=== PATIENT | female | born 1980 | race Hispanic/Latino ===

== ENCOUNTER 2017-08-25 16:07 | Emergency (ER) | payer MEDICARE, OTHER ==
[~2017-08-25 16:07] MED LIST: ACET1TAB25 PO; CARAL PO; CHOL400T4 PO; GABA-531 PO; HYDR200T82 PO; LEVO300T8 PO; LISI10TA7 PO; PANT40TA25 PO; SIMV20TA6 PO
== END 2017-08-25 16:44 | disposition home or self-care (01) ==
LOC: EDH 16:07
DX: I10 Essential (primary) hypertension (principal); E07.9 Disorder of thyroid, unspecified; M32.9 Systemic lupus erythematosus, unspecified; Z88.8 Allergy status to other drugs, medicaments and biological substances
CPT/HCPCS: 99281

== ENCOUNTER 2017-09-21 16:52 | Emergency (ER) | payer MEDICARE, OTHER ==
[2017-09-21] MEDS ORDERED: ONDANSETRON HCL 4 MG/2 ML VIAL ONE (18:42)
[2017-09-21 19:02] LABS: APPEARANCE,URINE Cloudy (CLEAR); BASOPHILS % (AUTO) 0.6 % (0.0-5.0); BILIRUBIN,URINE Negative (NEGATIVE); COLOR,URINE Yellow (YELLOW); EOSINOPHILS % (AUTO) 0.6 % (0.0-8.0); GLUCOSE, URINE (UA) Negative (NEGATIVE); HEMATOCRIT 43.6 % (36-48); KETONES,URINE Negative (NEGATIVE); LEUKOCYTE ESTERASE ,URINE Small (NEGATIVE); LYMPHOCYTES % (AUTO) 25.5 % (21.0-51.0); MEAN CORPUSCULAR HEMOGLOBIN 30.4 pg (27.0-33.0); MEAN CORPUSCULAR HGB CONC 33.5 g/dL (32.0-36.0); MONOCYTES % (AUTO) 5.2 % (3.0-13.0); NEUTROPHILS % (AUTO) 68.1 % (40.0-77.0); NITRATE,URINE Negative (NEGATIVE); NUCLEATED RED BLOOD CELLS 0.1 % (0.0-0.19); OCCULT BLOOD,URINE Large (NEGATIVE); PLATELET COUNT (AUTO) 319 K/uL (130-400); PROTEIN,URINE Trace (NEGATIVE); RED BLOOD CELL COUNT(AUTO) 4.79 MIL/uL (4.00-5.50); RED CELL DISTRIBUTION WIDTH 14.6 % (11.0-15.5); WHITE BLOOD COUNT (AUTO) 10.6 K/uL (4.8-10.8)
[2017-09-21 19:10] LABS: AMPHET/METH SCREEN,URINE NEGATIVE (NEGATIVE); BARBITURATE SCREEN, URINE NEGATIVE (NEGATIVE); BENZODIAZEPINES SCREEN,URINE NEGATIVE (NEGATIVE); CANNABINOID SCREEN,URINE NEGATIVE (NEGATIVE); COCAINE SCREEN,URINE NEGATIVE (NEGATIVE); OPIATE SCREEN,URINE NEGATIVE (NEGATIVE); PHENCYCLIDINE SCREEN,URINE NEGATIVE (NEGATIVE)
[2017-09-21 19:21] LABS: POTASSIUM 4.1 mmol/L (3.5-5.1)
[2017-09-21 19:28] LABS: TRICHOMONAS,URINE Rare /LPF (None Seen)
[2017-09-21 19:29] LABS: BACTERIA,URINE Few /HPF (None Seen); RBC,URINE 26-50 /HPF (0-1)
[2017-09-21 19:32] LABS: ALBUMIN 3.5 g/dL (3.5-5.0); BILIRUBIN,TOTAL 0.2 mg/dL (0.2-1.0); TOTAL PROTEIN, SERUM 7.6 g/dL (6.0-8.3)
[2017-09-21] MEDS ORDERED: KETOROLAC TROMETHAMINE 15MG/ML ONE (20:06)
== END 2017-09-21 20:45 | disposition home or self-care (01) ==
LOC: EDH 16:52
DX: G89.29 Other chronic pain (principal); R10.11 Right upper quadrant pain; R11.2 Nausea with vomiting, unspecified; I10 Essential (primary) hypertension; E07.9 Disorder of thyroid, unspecified; F43.10 Post-traumatic stress disorder, unspecified; Z88.8 Allergy status to other drugs, medicaments and biological substances; Z90.49 Acquired absence of other specified parts of digestive tract; Z98.51 Tubal ligation status; Z98.890 Other specified postprocedural states
CPT/HCPCS: 36415; 80053; 80305; 81001; 83690; 84702; 85025; 96374; 96375; 99284; J1885; J2405

== ENCOUNTER 2018-04-13 19:02 | Emergency (ER) | payer MEDICARE ==
[2018-04-13 20:25] LABS: APPEARANCE,URINE Clear (CLEAR); BILIRUBIN,URINE Negative (NEGATIVE); COLOR,URINE Yellow (YELLOW); GLUCOSE, URINE (UA) Negative (NEGATIVE); KETONES,URINE Negative (NEGATIVE); LEUKOCYTE ESTERASE ,URINE Moderate (NEGATIVE); NITRATE,URINE Negative (NEGATIVE); OCCULT BLOOD,URINE Large (NEGATIVE); PH,URINE 5.5 (5.0-8.0); PROTEIN,URINE Negative (NEGATIVE)
[2018-04-13] MEDS ORDERED: SODIUM CHLORIDE 0.9% 1000ML 1,000 ML IV ONE (20:28)
[2018-04-13 20:38] LABS: BACTERIA,URINE Few /HPF (None Seen); SQUAMOUS EPITHELIAL CELL,UR 0-2 /HPF (0-2); TRICHOMONAS,URINE Rare /LPF (None Seen)
[2018-04-13 20:44] LABS: BASOPHILS % (AUTO) 0.3 % (0.0-5.0); HEMATOCRIT 46.7 % (36-48); MEAN CORPUSCULAR HEMOGLOBIN 30.4 pg (27.0-33.0); MEAN CORPUSCULAR HGB CONC 32.7 g/dL (32.0-36.0); MONOCYTES % (AUTO) 8.2 % (3.0-13.0); NEUTROPHILS % (AUTO) 57.5 % (40.0-77.0); NUCLEATED RED BLOOD CELLS 0.1 % (0.0-0.19); PLATELET COUNT (AUTO) 274 K/uL (130-400); RED BLOOD CELL COUNT(AUTO) 5.02 MIL/uL (4.00-5.50); RED CELL DISTRIBUTION WIDTH 14.1 % (11.0-15.5); WHITE BLOOD COUNT (AUTO) 10.3 K/uL (4.8-10.8)
[2018-04-13] MEDS ORDERED: DiphenhydrAMINE HCL 50 MG/ML VIAL ONE (21:05)
[2018-04-13] MEDS ORDERED: KETOROLAC TROMETHAMINE 30MG/ML ONE (21:06)
[2018-04-13 21:14] LABS: CREATININE 0.9 mg/dL (0.5-1.5); POTASSIUM 3.9 mmol/L (3.5-5.1)
[2018-04-13 21:19] LABS: BILIRUBIN,TOTAL 0.4 mg/dL (0.2-1.0); TOTAL PROTEIN, SERUM 8.7 g/dL (6.0-8.3)
[2018-04-13] MEDS ORDERED: MECLIZINE HCL 25 MG TABLET ONE (22:16)
[2018-04-13] MEDS ORDERED: METRONIDAZOLE 500 MG TABLET ONE (23:30)
[2018-04-13] MEDS ORDERED: ONDANSETRON HCL 4 MG/2 ML VIAL ONE (23:45)
== END 2018-04-14 00:16 | disposition home or self-care (01) ==
LOC: EDH 19:02
DX: R42 Dizziness and giddiness (principal); R11.0 Nausea; I10 Essential (primary) hypertension; F41.9 Anxiety disorder, unspecified; E07.9 Disorder of thyroid, unspecified; M32.9 Systemic lupus erythematosus, unspecified; F43.10 Post-traumatic stress disorder, unspecified; Z98.51 Tubal ligation status; Z90.49 Acquired absence of other specified parts of digestive tract; Z88.8 Allergy status to other drugs, medicaments and biological substances
CPT/HCPCS: 36415; 71045; 80053; 81001; 81025; 84443; 85025; 87486; 87797; 93005; 96361; 96374; 96375; 99284; J1200; J1885; J2405; J7030

== ENCOUNTER 2018-05-06 15:44 | Emergency (ER) | payer MEDICARE, OTHER | END 2018-05-06 17:01 | disposition home or self-care (01) | LOC: EDH 15:44 | DX: R20.2 Paresthesia of skin (principal); M25.521 Pain in right elbow; I10 Essential (primary) hypertension; F41.9 Anxiety disorder, unspecified; E07.9 Disorder of thyroid, unspecified; Z98.51 Tubal ligation status; Z98.890 Other specified postprocedural states | CPT/HCPCS: 99281 ==

== ENCOUNTER 2018-06-21 18:32 | Emergency (ER) | payer MEDICARE ==
[2018-06-21] MEDS ORDERED: PROCHLORPERAZINE EDISYLATE 10 MG/2 ML VIAL ONE (18:58)
[2018-06-21] MEDS ORDERED: DIPHENHYDRAMINE HCL 25 MG CAPSULE ONE (18:58)
[2018-06-21] MEDS ORDERED: DEXAMETHASONE SOD PHOSPHATE 10MG/ML 1ML VIAL ONE (18:58)
[2018-06-21] MEDS ORDERED: SODIUM CHLORIDE 0.9% 1000ML 1,000 ML IV ONE (19:05)
== END 2018-06-21 19:37 | disposition home or self-care (01) ==
LOC: EDH 18:32
DX: G43.909 Migraine, unspecified, not intractable, without status migrainosus (principal); R42 Dizziness and giddiness; I10 Essential (primary) hypertension; F41.9 Anxiety disorder, unspecified; E07.9 Disorder of thyroid, unspecified; Z98.51 Tubal ligation status
CPT/HCPCS: 96361; 96374; 99283; J0780; J1100; J7030; Q0163

== ENCOUNTER 2018-07-12 12:22 | Emergency (ER) | payer MEDICARE ==
[2018-07-12 13:04] LABS: APPEARANCE,URINE SL CLOUDY (CLEAR); BILIRUBIN,URINE NEGATIVE (NEGATIVE); COLOR,URINE YELLOW (YELLOW); GLUCOSE, URINE (UA) NEGATIVE (NEGATIVE); KETONES,URINE NEGATIVE (NEGATIVE); LEUKOCYTE ESTERASE ,URINE SMALL (NEGATIVE); NITRATE,URINE NEGATIVE (NEGATIVE); OCCULT BLOOD,URINE NEGATIVE (NEGATIVE); PROTEIN,URINE NEGATIVE (NEGATIVE); UROBILINOGEN,URINE 0.2 mg/dL (0.2-1.0)
[2018-07-12 13:07] LABS: HCG,QUAL RESULT NEGATIVE (NEGATIVE)
[2018-07-12 13:12] LABS: BACTERIA,URINE Moderate /HPF (None Seen); RBC,URINE 0-1 /HPF (0-1); SQUAMOUS EPITHELIAL CELL,UR 30-50 /HPF (0-2)
[2018-07-12] MEDS ORDERED: ORPHENADRINE CITRATE 30 MG/ML ML ONE (13:12)
== END 2018-07-12 13:18 | disposition home or self-care (01) ==
LOC: EDH 12:22
DX: S79.822A Other specified injuries of left thigh, initial encounter (principal); F41.9 Anxiety disorder, unspecified; I10 Essential (primary) hypertension; E07.9 Disorder of thyroid, unspecified; F43.10 Post-traumatic stress disorder, unspecified; L93.0 Discoid lupus erythematosus; Z90.49 Acquired absence of other specified parts of digestive tract; Z98.51 Tubal ligation status; W18.39XA Other fall on same level, initial encounter; Y93.89 Activity, other specified; Y92.89 Other specified places as the place of occurrence of the external cause; Y99.8 Other external cause status
CPT/HCPCS: 73562; 81001; 81025; 96372; 99285; J2360

== ENCOUNTER 2019-01-15 22:10 | Emergency (ER) | payer MEDICARE, OTHER ==
[2019-01-15] MEDS ORDERED: METHYLPREDNISOLONE SOD SUCC 125MG/2ML VIAL ONE (22:49)
[2019-01-15] MEDS ORDERED: DIAZEPAM 2 MG TAB ONE (22:49)
[2019-01-15 23:37] LABS: POTASSIUM 3.7 mmol/L (3.5-5.1)
[2019-01-15 23:53] LABS: T4 (THYROXINE) 3.6 ug/dL (4.7-13.3)
[2019-01-16 00:24] LABS: THYROID STIMULATING HORMONE 142.17 uIU/mL (0.36-3.74)
== END 2019-01-16 00:43 | disposition home or self-care (01) ==
LOC: EDH 22:10
DX: E03.9 Hypothyroidism, unspecified (principal); R20.2 Paresthesia of skin; M32.9 Systemic lupus erythematosus, unspecified; F41.9 Anxiety disorder, unspecified; I10 Essential (primary) hypertension; F43.10 Post-traumatic stress disorder, unspecified
CPT/HCPCS: 36415; 71045; 80048; 84436; 84443; 84484; 93005; 96372; 99285; J2930

== ENCOUNTER 2019-02-02 16:48 | Emergency (ER) | payer OTHER ==
[~2019-02-02 16:48] MED LIST changes: +SIMV-43 PO; -SIMV20TA6 PO
[2019-02-02] MEDS ORDERED: KETOROLAC TROMETHAMINE 30MG/ML ONE (17:09)
[2019-02-02] MEDS ORDERED: ONDANSETRON HCL 4 MG/2 ML VIAL ONE (17:09)
[2019-02-02] MEDS ORDERED: SODIUM CHLORIDE 0.9% 1000ML 1,000 ML IV ONE (17:10)
[2019-02-02 17:14] LABS: BASOPHILS % (AUTO) 0.7 % (0.0-5.0); EOSINOPHILS % (AUTO) 1.3 % (0.0-8.0); HEMATOCRIT 46.7 % (36-48); LYMPHOCYTES % (AUTO) 26.4 % (21.0-51.0); MEAN CORPUSCULAR HEMOGLOBIN 31.4 pg (27.0-33.0); MEAN CORPUSCULAR HGB CONC 33.7 g/dL (32.0-36.0); MEAN CORPUSCULAR VOLUME 93.1 fL (79-99); MONOCYTES % (AUTO) 6.3 % (3.0-13.0); NEUTROPHILS % (AUTO) 65.3 % (40.0-77.0); NUCLEATED RED BLOOD CELLS 0.1 % (0.0-0.19); PLATELET COUNT (AUTO) 333 K/uL (130-400); RED BLOOD CELL COUNT(AUTO) 5.02 MIL/uL (4.00-5.50); RED CELL DISTRIBUTION WIDTH 14.3 % (11.0-15.5); WHITE BLOOD COUNT (AUTO) 12.6 K/uL (4.8-10.8)
[2019-02-02 17:25] LABS: CREATININE 0.9 mg/dL (0.5-1.5); POTASSIUM 4.2 mmol/L (3.5-5.1)
[2019-02-02 17:26] LABS: INR 0.97 (0.85-1.15); PARTIAL THROMBOPLASTIN TIME 26.2 SEC (26.3-35.5); PROTHROMBIN TIME 10.2 SEC (9.6-11.6)
[2019-02-02 17:30] LABS: ALBUMIN 3.3 g/dL (3.5-5.0); BILIRUBIN,DIRECT 0.1 mg/dL (0.0-0.3); BILIRUBIN,TOTAL 0.4 mg/dL (0.2-1.0); TOTAL PROTEIN, SERUM 7.5 g/dL (6.0-8.3)
[2019-02-02 18:38] LABS: APPEARANCE,URINE CLOUDY (CLEAR); BILIRUBIN,URINE NEGATIVE (NEGATIVE); COLOR,URINE YELLOW (YELLOW); GLUCOSE, URINE (UA) NEGATIVE (NEGATIVE); KETONES,URINE NEGATIVE (NEGATIVE); LEUKOCYTE ESTERASE ,URINE NEGATIVE (NEGATIVE); NITRATE,URINE NEGATIVE (NEGATIVE); OCCULT BLOOD,URINE LARGE (NEGATIVE); PH,URINE 7.5 (5.0-8.0); PROTEIN,URINE NEGATIVE (NEGATIVE); UROBILINOGEN,URINE 0.2 mg/dL (0.2-1.0)
[2019-02-02 18:45] LABS: BACTERIA,URINE Moderate /HPF (None Seen); MUCUS,URINE Few LPF (None Seen)
== END 2019-02-02 19:33 | disposition home or self-care (01) ==
LOC: EDH 16:48
DX: R10.31 Right lower quadrant pain (principal); R11.2 Nausea with vomiting, unspecified; F41.9 Anxiety disorder, unspecified; I10 Essential (primary) hypertension; E07.9 Disorder of thyroid, unspecified; Z90.49 Acquired absence of other specified parts of digestive tract; Z98.51 Tubal ligation status
CPT/HCPCS: 36415; 74176; 80048; 80076; 81001; 81025; 82550; 83690; 85025; 85610; 85730; 96361; 96374; 96375; 99285; J1885; J2405; J7030

== ENCOUNTER 2019-08-17 00:36 | Emergency (ER) | payer OTHER ==
[2019-08-17 02:20] LABS: APPEARANCE,URINE Clear (CLEAR); BILIRUBIN,URINE Negative (NEGATIVE); COLOR,URINE Yellow (YELLOW); GLUCOSE, URINE (UA) Negative (NEGATIVE); KETONES,URINE Negative (NEGATIVE); LEUKOCYTE ESTERASE ,URINE Negative (NEGATIVE); NITRATE,URINE Negative (NEGATIVE); OCCULT BLOOD,URINE Small (NEGATIVE); PH,URINE 6.5 (5.0-8.0); PROTEIN,URINE Negative (NEGATIVE); UROBILINOGEN,URINE 0.2 mg/dL (0.2-1.0)
[2019-08-17 02:23] LABS: HCG,QUAL RESULT NEGATIVE (NEGATIVE)
[2019-08-17 02:32] LABS: BASOPHILS % (AUTO) 0.5 % (0.0-5.0); EOSINOPHILS % (AUTO) 2.2 % (0.0-8.0); HEMATOCRIT 40.9 % (36-48); LYMPHOCYTES % (AUTO) 32.8 % (21.0-51.0); MEAN CORPUSCULAR HEMOGLOBIN 30.7 pg (27.0-33.0); MEAN CORPUSCULAR HGB CONC 33.3 g/dL (32.0-36.0); MEAN CORPUSCULAR VOLUME 92.3 fL (79-99); MONOCYTES % (AUTO) 9.9 % (3.0-13.0); NEUTROPHILS % (AUTO) 54.3 % (40.0-77.0); PLATELET COUNT (AUTO) 274 K/uL (130-400); RED BLOOD CELL COUNT(AUTO) 4.43 MIL/uL (4.00-5.50); RED CELL DISTRIBUTION WIDTH 13.2 % (11.0-15.5); WHITE BLOOD COUNT (AUTO) 9.9 K/uL (4.8-10.8)
[2019-08-17 02:33] LABS: BACTERIA,URINE None Seen /HPF (None Seen); RBC,URINE None Seen /HPF (0-1); SQUAMOUS EPITHELIAL CELL,UR Moderate /HPF (0-2); WBC,URINE None Seen /HPF (0-1)
[2019-08-17 02:39] LABS: CREATININE 0.9 mg/dL (0.5-1.5); POTASSIUM 4.3 mmol/L (3.5-5.1)
[2019-08-17] MEDS ORDERED: KETOROLAC TROMETHAMINE 30MG/ML ONE (02:51)
[2019-08-17 02:56] LABS: ALBUMIN 3.2 g/dL (3.5-5.0); BILIRUBIN,TOTAL 0.3 mg/dL (0.2-1.0); THYROID STIMULATING HORMONE 33.15 uIU/mL (0.36-3.74); TOTAL PROTEIN, SERUM 6.9 g/dL (6.0-8.3)
[2019-08-17] MEDS ORDERED: MORPHINE SULFATE 4 MG/1ML SYG ONE (04:32)
== END 2019-08-17 05:09 | disposition home or self-care (01) ==
LOC: EDH 00:36
DX: M54.16 Radiculopathy, lumbar region (principal); M54.30 Sciatica, unspecified side; M32.19 Other organ or system involvement in systemic lupus erythematosus; I10 Essential (primary) hypertension; F41.9 Anxiety disorder, unspecified; Z90.49 Acquired absence of other specified parts of digestive tract
CPT/HCPCS: 36415; 73562; 80053; 81001; 81025; 84439; 84443; 85025; 85378; 96374; 96375; 99284; J1885; J2270

== ENCOUNTER 2024-02-12 07:27 | Day surgery (SDC) | payer OTHER ==
[2024-02-10 12:36] LABS: BASOPHILS # (AUTO) 0.09 K/uL (0.00-0.20); BASOPHILS % (AUTO) 0.9 % (0.0-5.0); EOSINOPHILS # (AUTO) 0.49 K/uL (0.00-0.70); EOSINOPHILS % (AUTO) 4.8 % (0.0-8.0); IMMATURE GRANULOCYTE ABSOLUTE 0.05 K/uL (0-1); LYMPHOCYTES # (AUTO) 2.3 K/uL (1.0-4.8); LYMPHOCYTES % (AUTO) 22.4 % (21.0-51.0); MEAN CORPUSCULAR HEMOGLOBIN 27.2 pg (27.0-33.0); MEAN CORPUSCULAR HGB CONC 31.9 g/dL (32.0-36.0); MEAN CORPUSCULAR VOLUME 85.4 fL (79-99); MONOCYTES # (AUTO) 0.8 K/uL (0.1-1.0); MONOCYTES % (AUTO) 7.3 % (3.0-13.0); NEUTROPHILS # (AUTO) 6.6 K/uL (1.8-7.7); NEUTROPHILS % (AUTO) 64.1 % (40.0-77.0); PLATELET COUNT (AUTO) 390 K/uL (130-400); RED BLOOD CELL COUNT(AUTO) 4.92 MIL/uL (4.00-5.50); RED CELL DISTRIBUTION WIDTH 14.9 % (11.0-15.5); WHITE BLOOD COUNT (AUTO) 10.3 K/uL (4.8-10.8)
--- NOTE | 2024-02-10 12:38 | EKG ---
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
[2024-02-10 12:46] LABS: INR 1.01 (0.85-1.15); PROTHROMBIN TIME 10.9 SEC (9.6-11.6)
[2024-02-10 12:47] LABS: PARTIAL THROMBOPLASTIN TIME 26.7 SEC (26.3-35.5)
[2024-02-10 13:09] VITALS: BP 131/76; PULSE 103; RESP 18; TEMP 97.4
[2024-02-10 14:26] LABS: B-TYPE NATRIURETIC PEPTIDE < 5 pg/mL (0-100)
[~2024-02-12] VITALS: Ht 165.1 cm; Wt 118.9 kg
[~2024-02-12 07:27] MED LIST changes: +ACET-2079 PO; -ACET1TAB25 PO; +ASPI-1146 PO; +ATOR40TA71 PO; +BUSP15TA3 PO; -CARAL PO; +CEVI30CA7 PO; -CHOL400T4 PO; +CYCL-309 PO; +DICL35CA3 PO; +FAMO20TA8 PO; -GABA-531 PO; +HYDR25TA PO; +LEFL20TA22 PO; +LEVO200T10 PO; -LEVO300T8 PO; -LISI10TA7 PO; +LISI20TA24 PO; +METO-409 PO; +OMEP40CA21 PO; -PANT40TA25 PO; -SIMV-43 PO; +TIRZ5PEN SQ
[2024-02-12 07:45] VITALS: BP 188/89; PULSE 96; RESP 16; TEMP 97.2
[2024-02-12] MEDS ORDERED: 0.9%NACL 1000ML 1,000 ML IV ONE (09:33)
[2024-02-12] MEDS ORDERED: LIDOCAINE HCL 400MG/20ML VIAL ONE ×2 (10:10→10:41)
[2024-02-12] MEDS ORDERED: MIDAZOLAM HCL 1 MG/ML 2ML VIAL ONE (10:28)
[2024-02-12] MEDS ORDERED: FENTanyl CITRate PF 50 MCG/1 ML 2ML VIAL ONE (10:28)
[2024-02-12] MEDS ORDERED: BACITRACIN 1 EACH PACKET TP ONE (11:02)
[2024-02-12 11:25] VITALS: BP 133/63; PULSE 91; RESP 15; TEMP 97.8
--- NOTE | 2024-02-12 11:25 | NUR ---
PT ARRIVED BACK FROM PATIENT AMBASSADOR. LOOP RECORDER SITE DRESSING DRY INTACT. SKIN SOFT NO BRUISING NOTED.
[2024-02-12 11:40] VITALS: BP 143/63; PULSE 89; RESP 15
[2024-02-12 11:55] VITALS: BP 141/88; PULSE 89; RESP 14
[2024-02-12 12:10] VITALS: BP 152/88; PULSE 98; RESP 15
[2024-02-12 12:25] VITALS: BP 155/86; PULSE 97; RESP 16
--- NOTE | 2024-02-26 19:51 | PR ---
PROCEDURE: Removal of implantable loop recorder. INDICATIONS: This is a pleasant 43-year-old woman who has had multiple dysrhythmias. She has had a loop recorder for evaluation of near syncope. She has had no symptoms. The loop recorder is nearing end of life. She wished to have it removed, it has been removed at this time. DESCRIPTION OF PROCEDURE: After informed consent was obtained, including all risks, options, and alternatives, she was prepped and draped in the usual fashion. The patient had gained a significant amount of weight, thus, the device was actually quite hard to find. It was localized with fluoroscopy. Once localized, an incision was made near the site, the incision required to be slightly enlarged secondary to requiring a forceps to penetrate deep inside to remove the device. Once the device was captured, it was removed in its entirety without difficulty. A pressure dressing was placed. The patient tolerated the procedure well and there were no complications. TID: [id number] RECEIPT: [id number]
== END 2024-02-12 12:45 | disposition home or self-care (01) ==
LOC: DAH 07:27
PROVIDERS: ATTEND Internal Medicine Interventional Cardiology
DX: Z45.09 Encounter for adjustment and management of other cardiac device (principal); R00.0 Tachycardia, unspecified; E66.01 Morbid (severe) obesity due to excess calories; Z79.01 Long term (current) use of anticoagulants; Z88.1 Allergy status to other antibiotic agents; Z71.82 Exercise counseling; Z79.899 Other long term (current) drug therapy
CPT/HCPCS: 80048; 83880; 85025; 85610; 85730; 36415; 93005; 33286; 82948; A4649; J3010; J3490 ×2; J7030; J2250; A4215; A4222; A4221; A4663; A4216; A4606; A4223 ×3; 99156; 99157